=== PATIENT | female | born 1975 | race African-American/Black ===

== ENCOUNTER 2020-02-09 17:36 | Emergency (ER) | payer BC, SELFPAY ==
[2020-02-09] VITALS (18 sets, daily range): BP systolic 96–109; BP diastolic 68–79; PULSE 88–122; RESP 14–23; TEMP 37; O2SAT 97–100
--- NOTE | ~2020-02-09 | XR_ITS ---
EXAMINATION: XR chest 1V portable EXAM DATE: 02/09/2020 18:04 INDICATION: Tachycardia, Pt Denies Any History Of Heart Or Lung Disease . TECHNIQUE: Portable AP frontal chest x-ray was obtained. There is no prior study for comparison. FINDINGS: The lungs are clear. There are no pleural effusions. Cardiac silhouette is prominent but magnified on this AP technique. There is no pneumothorax suspected. The bones and soft tissues are unremarkable. IMPRESSION: No acute cardiopulmonary findings. Reviewed, dictated and finalized at location A.
--- NOTE | 2020-02-09 17:38 | ECG_ITS ---
Measurements Intervals [place] Rate: 112 P: 56 [place]: 154 QRS: 62 QRSD: 90 T: 6 QT: 297 QTc: 407 Interpretive Statements SINUS TACHYCARDIA BORDERLINE ST-T WAVE ABNORMALITY- INFERIOR LEADS BASELINE ARTIFACT- I, II, III, AVR, AVL, AVF ABNORMAL ECG Electronically Signed On 02-09-2020 19:31:27 CDT by Андрей Hernandes D.O.
--- NOTE | 2020-02-09 17:49 | PC.NURSE ---
erik hurd at bedside for assessment. pt has necrotizing fasciatus in buttock and left posterior thigh.
--- NOTE | 2020-02-09 18:05 | ED.GENADULT ---
HPI - General Adult General Chief complaint: Arrhythmia/Palpitations Stated complaint: Heart racing Time Seen by Provider: 02/09/20 17:40 Source: patient and family Mode of arrival: ambulatory Limitations: no limitations History of Present Illness HPI narrative: Patient is a 44-year-old female who presents to emergency department for evaluation of tachycardia patient was seen by her home health nurse today who noted that she had an elevated heart rate advised her to be seen for this. Patient on arrival is in the room in no distress denies any pain sickness illness or other complaints patient has been seen for home health nurse for a wound involving the left buttock and groin where she had had a history of necrotizing fasciitis and is managed by surgeons at [facility] patient was discharged from nursing rehab last Sunday and has been seen at home where she lives with family patient notes she has been fine has no other complaints and is resting comfortably in the room in no distress upon arrival Review of Systems Review of Systems: All systems reviewed & are unremarkable except as noted in HPI and below PMFSH Past Medical History Medical History (Updated 02/09/20 @ 19:31 by Kurtis Hdez PA-C) Diabetes mellitus Necrotizing fasciitis Obesity Surgical History Surgical History (Updated 02/09/20 @ 18:07 by Kurtis Hdez PA-C) H/O fasciotomy Social History Social History Gender identity (if verbalized by the patient): Female Sexual Orientation (if Verbalized by the Patient): Straight or Heterosexual Exam Narrative: Exam Narrative: GENERAL: Well-appearing, obese, and in no acute distress. HEAD: Normocephalic, atraumatic. EYES: PERRLA and EOMI. ENT: Nares clear, no rhinorrhea or epistaxis. Mucous membranes moist. CHEST: Clear to auscultation. No respiratory distress. No wheezes rales or rhonchi HEART: Tachycardic rate and regular rhythm. No murmur heard. Normal peripheral pulses. ABDOMEN: Soft, nontender, nondistended EXTREMITIES: Normal range of motion. No edema. SKIN: Warm, dry, no rash. Patient with healing wound involving the left buttock groin region no cellulitic changes or drainage noted NEURO: No focal deficits. Alert and oriented x3. Cranial nerves II through XII grossly intact. Neurovascularly intact PSYCH: Normal mood and affect. Course Course Emergency Course: Patient in the room in no distress aware of case findings treatment plan and diagnosis resting comfortably in the room in no distress patient felt appropriate for outpatient reevaluation. Patient will be treated for urinary tract infection was given fluids and antibiotics in the emergency department patient's heart rate improved with fluids patient has no other complaints denies pain and is felt appropriate for outpatient reevaluation will be seen by her wound care physician on Sunday Vital Signs Vital signs: Vital Signs Temperature 98.6 F 02/09/20 17:41 Pulse Rate 117 H 02/09/20 17:41 Respiratory Rate 23 H 02/09/20 17:41 Blood Pressure 96/68 L 02/09/20 17:41 Pulse Oximetry 97 02/09/20 17:41 Temperature 98.6 F 02/09/20 17:41 Pulse Rate 117 H 02/09/20 17:41 Respiratory Rate 23 H 02/09/20 17:41 Blood Pressure 96/68 L 02/09/20 17:41 Pulse Oximetry 97 02/09/20 17:41 Medical Decision Making MDM Narrative Medical decision making narrative: Patient in the ER no distress was hydrated given IV antibiotics for urinary tract infection patient has no pain no emesis no electrolyte abnormalities normal kidney function felt appropriate for outpatient reevaluation by her specialist on Sunday provided with reasons to return patient feels fine and notes that she agrees with this plan Vital Signs Vital Signs: Vital Signs Temperature 98.6 F 02/09/20 17:41 Pulse Rate 117 H 02/09/20 17:41 Respiratory Rate 23 H 02/09/20 17:41 Blood Pressure 96/68 L 02/09/20 17:41 Pulse Oximetry 97 02/09/20 17:41
[2020-02-09] MEDS: SODIUM CHLORIDE 0.9% IV 1,000 ML 999 ML IV CONT ×2 (18:31→19:50)
[2020-02-09 18:47] LABS: Basophils Absolute Auto 0.1 K/mm3 (0.0-0.1); Basophils Percent Auto 0.6 % (0.2-1.2); Eosinophils Absolute Auto 0.4 K/mm3 (0-0.3); Eosinophils Percent Auto 2.7 % (0-4.4); Hematocrit 39.1 % (37.0-47.0); Hemoglobin 13.2 g/dL (12.0-15.0); Immature Granulocyte Absolute 0.04 K/mm3 (0.00-0.031); Immature Granulocyte Percent A 0.3 % (0-0.5); Lymphocytes Percent Auto 34.1 % (18.3-44.2); Mean Corpuscular HGB Conc 33.8 g/dl (32-36); Mean Corpuscular Hemoglobin 28.1 pg (26-34); Mean Corpuscular Volume 83.2 fl (80-100); Mean Platelet Volume 9.3 fl (7.4-10.4); Monocytes Absolute Auto 0.7 K/mm3 (0.1-0.6); Monocytes Percent Auto 5.6 % (2.6-8.5); Neutrophils Absolute Auto 7.5 K/mm3 (1.3-6.7); Neutrophils Percent Auto 56.7 % (45.5-73.1); Platelet Count Result 382 k/mm3 (150-375); Red Cell Distribution Width 13.4 % (11.5-14.5); White Blood Count 13.2 K/mm3 (4.5-10.0)
[2020-02-09 18:56] LABS: INR 0.9; Prothrombin Time 12.3 Seconds (11.1-14.7)
[2020-02-09 18:57] LABS: Partial Thromboplastin Time 41.2 SECONDS (22.3-36.8)
[2020-02-09 19:02] LABS: Lactic Acid Reflex 1.3 mmol/L (0.7-2.1)
[2020-02-09 19:04] LABS: Alanine Aminotransferase 21 U/L (4-35); Albumin Level 3.9 g/dL (3.5-5.1); Alkaline Phosphatase 104 U/L (38-126); Anion Gap 10 mmol/L (8-16); Aspartate Amino Transferase 24 U/L (14-36); Bilirubin,Total 0.5 mg/dL (0.2-1.3); Blood Urea Nitrogen 19 mg/dL (7-17); CRP 0.6 mg/dL (<1.0); Calcium 10.1 mg/dL (8.4-10.2); Carbon Dioxide 24 mmol/L (22-30); Chloride 100 mmol/L (98-107); Estimated CRCL calculation 102 ml/min; Estimated Glomerular Filt Rate > 60; Glucose 104 mg/dL (65-105); Lipase 32 U/L (23-300); Potassium 3.5 mmol/L (3.4-5.0); Sodium 134 mmol/L (137-145)
[2020-02-09 19:08] LABS: Add Urine Microscopic? YES; Appearance Urine Cloudy (Clear); Bacteria Urine 4+ /hpf; Bilirubin Urine Negative (Negative); Blood Urine Negative (Negative); Color Urine Amber (Yellow); Glucose Urine UA Negative (Negative); Ketones Urine Trace mg/dL (Negative); Leukocyte Esterase Ur 2+ LEU/UL (Negative); Mucus Urine Heavy /lpf; Nitrate Urine Positive (Negative); Protein Urine 2+ mg/dL (Negative); Specific Grav Ur 1.028 (1.001-1.035); Squamous Epithelial Cell Urine Few /hpf (Few); Urobilinogen Urine Negative mg/dL (<2.0); WBC Urine 51-75 /hpf
== END 2020-02-09 21:08 | disposition home or self-care (01) ==
PROVIDERS: Emergency Medicine Emergency Medical Services; Emergency Provider Emergency Medicine
DX: N39.0 Urinary tract infection, site not specified (principal); E11.9 Type 2 diabetes mellitus without complications; M72.6 Necrotizing fasciitis; E66.9 Obesity, unspecified; Z68.39 Body mass index [BMI] 39.0-39.9, adult; R94.31 Abnormal electrocardiogram [ECG] [EKG]
CPT/HCPCS: 36415; 71045; 80053; 81001; 83605; 83690; 85025; 85610; 85730; 86140; 87040; 87086; 87088; 93005; 96361; 96365; 96375; 99284; J0131; J0696; J7030